=== PATIENT | male | born 1955 | race Caucasian/White ===

== ENCOUNTER → 2016-03-29 | Outpatient (CLI) | payer OTHER | LOC: RAD 07:38 | PROVIDERS: ATTEND Surgery | DX: E11.621 Type 2 diabetes mellitus with foot ulcer (principal); L97.519 Non-pressure chronic ulcer of other part of right foot with unspecified severity; I10 Essential (primary) hypertension | CPT/HCPCS: 36415; 73720; 82565; 84520; A9579 ==

== ENCOUNTER → 2016-05-17 | Outpatient (CLI) | payer OTHER ==
[~2016-05-17] MED LIST: CEPH-507 PO; DOXY-182 PO; SILV20CR14 TOP
[2016-05-17 15:20] VITALS: BP 160/95
--- NOTE | 2016-05-17 15:20 | Urgent Care T Sheet Gen (E) ---
Intake General Temperature (Fahrenheit): 98.0 Pulse: 102 Blood Pressure Systolic: 160 Blood Pressure Diastolic: 95 (taking OTC cold med) Respirations: 20 SPO2: 100 Description of Symptoms Patient presents with illness x 1 week, worsening over the past 2 days. Notes sinus congestion, PND, chest congestion and cough. States he feels short of breath. Does smoke. No fever. Been taking DayQuil which helps temporarily. History of Present Illness Home Meds Active Scripts Doxycycline Hyclate 100 Mg Tablet.dr100 Mg PO BID Infection #14 TAB Ref 0 Prov:LAKSHMI SILVER 05/17/16 Silver Sulfadiazine (Silvadene)20 Gm Cream..g.1 Gm TOP BID #1 TUBE Apply topically to affected area BID x 1 week. Prov:LAKSHMI SILVER 09/28/15 Silver Sulfadiazine (Silvadene)20 Gm Cream..g.1 Gm TOP BID #1 TUBE Apply to affected area BID x 7 days. Prov:LAKSHMI SILVER 08/21/15 Cephalexin (Keflex)500 Mg [id number] Mg PO QID Infection #56 CAP Ref 0 Prov:LAKSHMI SILVER 08/21/15 Respiratory Constitutional Symptoms: No Fever, Malaise EENTM: Nose Congestion Throat pain Respiratory: Cough Short of breath Cardiovascular: No symptoms reported Gastrointestinal/Abdominal: No symptoms reported All Other Systems Reviewed Remaining Systems: All other systems reviewed with negative findings Physical Exam Physical Exam General Appearance: WD/WN No apparent distress Eyes, Ears, Nose, Throat Ex: TMs normal (air fluid bubbles) Pharyngeal erythema (cobblestone appearance with PND) Other (red, swollen nasal turbinates with purulent drainage. tender over maxillary sinuses.) Neck Exam: SuppleNo Lymphadenopathy Respiratory Exam: Lungs clear Normal breath sounds Cardiovascular Exam: Regular rate, rhythm Departure Urgent Care Impression Impression: Primary Impression: Sinusitis Qualified Code: J01.00 - Acute maxillary sinusitis, unspecified Additional Impression: Cough Departure Disposition: HOME OR SELF-CARE Condition: Stable Referrals: JUAN COSTA MD (PCP) Additional Instructions: The patient's lungs were clear. I believe his cough is due to drainage. I have started him on Doxycycline x 7 days Instructed him to DC the DayQuil as it is increasing his BP. Suggested he switch to Mucinex Rest. Fluids Return as needed Patient understands DC instructions. All questions were answered. Scripts Doxycycline Hyclate 100 Mg Tablet.dr100 Mg PO BID Infection #14 TAB Ref 0 Prov:LAKSHMI SILVER 05/17/16 End of report . LAKSHMI SILVER May 17, 2016 14:41
== END ==
LOC: MHUC 14:27
PROVIDERS: ATTEND Physician Assistant
DX: J01.00 Acute maxillary sinusitis, unspecified (principal); R05 Cough
CPT/HCPCS: 99213

== ENCOUNTER → 2016-07-05 | Outpatient (RCR) | payer OTHER ==
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
== END | disposition home or self-care (01) ==
LOC: PT 03-22 14:17
PROVIDERS: ATTEND Surgery
DX: T25.221S Burn of second degree of right foot, sequela (principal); X19.XXXS Contact with other heat and hot substances, sequela; S90.31XS Contusion of right foot, sequela; W22.09XS Striking against other stationary object, sequela; Y93.01 Activity, walking, marching and hiking; E11.621 Type 2 diabetes mellitus with foot ulcer; L97.412 Non-pressure chronic ulcer of right heel and midfoot with fat layer exposed; Z79.84 Long term (current) use of oral hypoglycemic drugs; E11.42 Type 2 diabetes mellitus with diabetic polyneuropathy